=== PATIENT | female | born 1990 | race Caucasian/White ===

== ENCOUNTER 2018-11-10 20:40 | Emergency (ER) | payer BC, MEDICAID ==
[2018-11-10 20:55] VITALS: BP 125/74
--- NOTE | 2018-11-10 21:11 | EDM.PDOC ---
ED HPI GENERAL MEDICAL PROBLEM - General Chief Complaint: Respiratory Problem Stated Complaint: COUGH AND HARD TO BREATH RESPITORY Time Seen by Provider: 11/10/18 21:10 Source of Information: Reports: Patient History Limitations: Reports: No Limitations - History of Present Illness INITIAL COMMENTS - FREE TEXT/NARRATIVE: 20-year-old female presents the ED with harsh paroxysmal productive cough chest pain from coughing and breathing deeply with associated wheezing. She does have a history of asthma that's aggravated by exercise and when she gets sick. She is febrile. Appetite remains fair. She does have a headache. Mild generalized myalgia. She did not receive a flu shot this year. Onset: Sudden Onset Date: 11/08/18 (Illness started abruptly 2 days ago.) Duration: Day(s):, Getting Worse (2 days ago.) Location: Reports: Chest Quality: Reports: Ache, Other Severity: Moderate (Headache generalized myalgia) Improves with: Reports: None Worsens with: Reports: Other (Lying down and exposure to cool her make the cough worse.) Context: Denies: Activity, Exercise, Lifting, Sick Contact, Trauma Associated Symptoms: Reports: Chest Pain, Cough, cough w sputum, Fever/Chills, Headaches, Loss of Appetite, Malaise, Shortness of Breath, Other (Wheezing). 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: Reports: Other (see below) (None.) Chest Pain Score (Numeric/FACES): 8 - Related Data Allergies Allergy/AdvReac Type Severity Reaction Status Date / Time iodine Allergy Cannot Verified 11/10/18 20:53 Remember Home Meds: Home Meds Codeine/Promethazine [Phenergan with Codeine] 10 ml PO Q6H PRN #200 ml 11/10/18 [Rx] Doxycycline [Vibramycin] 100 mg PO BID #16 cap 11/10/18 [Rx] traMADol [Ultram] 50 mg PO Q4H PRN 11/10/18 [History] Past Medical History HEENT History: Reports: Impaired Vision Other HEENT History: wears glasses Respiratory History: Reports: Asthma 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 Decreased from the normal) HEENT: Reports: Other (Hoarse voice.) Respiratory: Reports: Shortness of Breath, Wheezing, Cough, Sputum (Severe paroxysmal intermittent cough.). Denies: Pleuritic Chest Pain, Hemoptysis ( No sputum production) Cardiovascular: Reports: Chest Pain, Dyspnea on Exertion (From coughing hard at times), Lightheadedness. Denies: Blood Pressure Problem, Claudication (From coughing primarily), Edema, Orthopnea Endocrine: Reports: Fatigue GI/Abdominal: Reports: Decreased Appetite (Mildly decreased appetite.) : Reports: No Symptoms Musculoskeletal: Reports: No Symptoms Skin: Reports: No Symptoms Neurological: Reports: No Symptoms Psychiatric: Reports: No Symptoms Hematologic/Lymphatic: Reports: No Symptoms ED EXAM, GENERAL - Physical Exam Exam: See Below Exam Limited By: No Limitations General Appearance: Alert, WD/WN, No Apparent Distress, Other (She does feel quite warm to palpation. Nurses a temperature 36.8 by skin assessment.) Eye Exam: Bilateral Eye: Normal Inspection Ears: Normal TMs Throat/Mouth: Normal Inspection, Normal Lips, Normal Teeth, Normal Oropharynx Head: Atraumatic, Normocephalic Neck: Normal Inspection, Non-Tender, Full Range of Motion. No: Lymphadenopathy (L), Lymphadenopathy (R) Respiratory/Chest: Chest Non-Tender, Respiratory Distress, Decreased Breath Sounds ( Mild expiratory wheezes from the lung bases.decreased air entry to both lower lung edwards. ), Wheezing (Mild tachypnea.). No: Lungs Clear, Normal Breath Sounds Cardiovascular: Normal Peripheral Pulses, Regular Rate, Rhythm, No Edema, No Gallop, No Murmur, No Rub GI/Abdominal: Normal Bowel Sounds, Soft, Non-Tender, No Organomegaly Extremities: Normal Inspection, Normal Range of Motion, Non-Tender, No Pedal Edema Neurological: Alert, Oriented, Normal Cognition Psychiatric: Normal Affect, Normal Mood Skin Exam: Warm, Dry, Intact, Normal Color, No Rash Course - Vital Signs Last Recorded V/S: Last Vital Signs Temp 36.8 C 11/10/18 20:54 Pulse 89 11/10/18 20:54 Resp 18 11/10/18 20:54 BP 125/74 11/10/18 20:54 Pulse Ox 100 11/10/18 21:15 - Orders/Labs/Meds Orders: Active Orders 24 hr Category Date Time Status RT Aerosol Therapy [RC] ASDIRECTED Care 11/10/18 21:15 Active Meds: Medications Discontinued Medications Generic Name Dose Route Start Last Admin Trade Name Shay PRN Reason Stop Dose Admin Albuterol/Ipratropium 3 ml 11/10/18 21:15 11/10/18 21:22 Duoneb 3.0-0.5 Mg/3 Ml NEB 11/10/18 21:16 3 ml ONETIME ONE Administration Doxycycline Hyclate 100 mg 11/10/18 21:50 11/10/18 22:02 Vibramycin PO 11/10/18 21:51 100 mg ONETIME ONE Administration Ibuprofen 600 mg 11/10/18 21:17 11/10/18 21:35 Motrin PO 11/10/18 21:18 600 mg ONETIME ONE Administration Promethazine HCl/Codeine 10 ml 11/10/18 21:51 11/10/18 22:02 Phenergan With Codeine PO 11/10/18 21:52 10 ml ONETIME ONE Administration - Radiology Interpretation Free Text/Narrative:: 20-year-old female presents to the ED with acute upper respiratory tract infection with acute onset of fever headache generalized myalgia and severe paroxysmal cough. Clinically she may have influenza. Plan influenza screen to be done. DuoNeb will be given to help open up her airway and suggest some of the cough. - Re-Assessments/Exams Free Text/Narrative Re-Assessment/Exam: 11/10/18 21:50 influenza screen is negative. He notices his bronchitis. She will be treated with doxycycline 100 mg twice daily for the next 8 days with the first dose provided through the ED as the drugstore be closing in a few minutes time. Also Phenergan with codeine cough syrup 10 mils every 6 to hours as needed for cough relief. Again first dose provided to the ED because the drug stores closing momentarily. Prescription written for the remainder the medications to be taken as an outpatient. Follow-up with personal care physician if not markedly improved in 3-4 days time. Patient states the duodenum did seem to help her breathe better and deeper without coughing. She is no longer wheezing. Departure - Departure Time of Disposition: 21:47 Disposition: Home, Self-Care 01 Condition: Fair Clinical Impression: Bronchitis - Discharge Information *PRESCRIPTION DRUG MONITORING PROGRAM REVIEWED*: Not Applicable *COPY OF PRESCRIPTION DRUG MONITORING REPORT IN PATIENT DOROTHEA: Not Applicable Prescriptions: Codeine/Promethazine [Phenergan with Codeine] 10 ml PO Q6H PRN #200 ml PRN Reason: Allergies Doxycycline [Vibramycin] 100 mg PO BID #16 cap Instructions: Acute Bronchitis, Adult, [id number] Referrals: PCP,Unknown [Primary Care Provider] - Forms: ED Department Discharge Additional Instructions: Evaluation the emergent tonight in regards to sudden onset of acute fever and paroxysmal cough and headache. Illness started 2 days ago. Examination reveals you do have a low-grade fever. Is and throat exam is normal. Influenza screen is negative. You' were treated with DuoNeb inhalational treatment in the ED and Motrin 600 mg for fever relief. Just treatment to be doxycycline 100 mg twice daily for the next 8 days to clear up infection and cough syrup Phenergan With Codeine 10 mils to be taken every 6-8 hours as necessary for cough relief. Of note he takes a good hour to work and should be taken with some food or fluid in your stomach. Continue Motrin 600 mg every 6 hours needed for fever relief. - My Orders Last 24 Hours: My Active Orders 11/10/18 21:15 RT Aerosol Therapy [RC] ASDIRECTED - Assessment/Plan Last 24 Hours: My Active Orders 11/10/18 21:15 RT Aerosol Therapy [RC] ASDIRECTED
[2018-11-10] MEDS ORDERED: Albuterol/Ipratropium 3.0-0.5 MG/3 ML Neb Soln NEB ONE (21:15)
[2018-11-10] MEDS ORDERED: Ibuprofen 600 MG Tab PO ONE (21:17)
[2018-11-10] MEDS ORDERED: Doxycycline 100 MG Cap PO ONE (21:50)
[2018-11-10] MEDS ORDERED: Codeine/Promethazine 10-6.25 MG/5 ML Syrup 5 ML UD Cup PO ONE (21:51)
== END 2018-11-10 22:04 | disposition home or self-care (01) ==
LOC: JD.ED 20:40
DX: J40 Bronchitis, not specified as acute or chronic (principal)
CPT/HCPCS: 87804; 94640; 99283; A9270; J7620-GY

== ENCOUNTER 2022-04-07 23:49 | Emergency (ER) | payer BC, MEDICAID ==
[2022-04-08 00:03] VITALS: BP 99/64; PULSE 82
== END 2022-04-08 00:44 | disposition home or self-care (01) ==
LOC: JD.ED 23:49
DX: M79.671 Pain in right foot (principal); J45.909 Unspecified asthma, uncomplicated; Z91.041 Radiographic dye allergy status; Z90.710 Acquired absence of both cervix and uterus
CPT/HCPCS: 99283

== ENCOUNTER 2022-05-17 06:40 | Day surgery (SDC) | payer BC ==
[~2022-05-17 06:40] MED LIST: Bupivacaine 0.25% 10 ML SDV ONE; Lactated Ringers 1,000 ML IV SCH; Lidocaine 1% 30 ML SDV ONE; Lidocaine 1%/Sod Bicarbonate in NS 8.4% 1 ML Syringe IDERM PRN; Midazolam 1 MG/ML 2 ML SDV ONE; Propofol 200 MG/20 ML SDV ONE; Sodium Chloride 0.9% 10 ML Syringe FLUSH PRN; Sodium Chloride 0.9% 10 ML Syringe FLUSH SCH; fentaNYL 100 MCG/2 ML SDV ONE
[2022-05-17] MEDS ORDERED: Lactated Ringers 1,000 ML ONE (07:43)
[2022-05-17 09:00] VITALS: BP 98/70; PULSE 60
== END 2022-05-17 09:40 | disposition home or self-care (01) ==
LOC: JD.SDS 06:40
PROVIDERS: ATTEND Orthopaedic Surgery
DX: G56.11 Other lesions of median nerve, right upper limb (principal); G56.01 Carpal tunnel syndrome, right upper limb; F41.9 Anxiety disorder, unspecified; J45.30 Mild persistent asthma, uncomplicated; F32.A Depression, unspecified; Z88.8 Allergy status to other drugs, medicaments and biological substances; Z79.899 Other long term (current) drug therapy; Z98.890 Other specified postprocedural states
CPT/HCPCS: 64721; J2250; J2704; J3010; J3490; J7120; 01810

== ENCOUNTER 2023-04-06 14:53 | Emergency (ER) | payer BC, OTHER ==
[2023-04-06 15:12] VITALS: BP 135/90; PULSE 80
[2023-04-06] MEDS ORDERED: Fluorescein 1 MG Ophth Strip EYERT ONE (15:27)
[2023-04-06] MEDS ORDERED: Proparacaine 0.5% Ophth Soln 15 ML Bottle EYERT ONE (15:29)
== END 2023-04-06 16:59 | disposition home or self-care (01) ==
LOC: JD.ED 14:53
DX: H57.89 Other specified disorders of eye and adnexa (principal); Z91.041 Radiographic dye allergy status; J45.909 Unspecified asthma, uncomplicated; Z79.51 Long term (current) use of inhaled steroids; Y77.11 Contact lens associated with adverse incidents
CPT/HCPCS: 99283; J3490

== ENCOUNTER 2023-04-26 23:13 | Emergency (ER) | payer OTHER ==
[2023-04-27] MEDS ORDERED: Ketorolac 30 MG/ML SDV IM ONE (00:46)
[2023-04-27 02:48] VITALS: BP 106/58; PULSE 75
== END 2023-04-27 01:03 | disposition home or self-care (01) ==
LOC: JD.ED 23:13
DX: M25.522 Pain in left elbow (principal); J45.909 Unspecified asthma, uncomplicated; Z88.8 Allergy status to other drugs, medicaments and biological substances; Z79.899 Other long term (current) drug therapy
CPT/HCPCS: 96372; 99283; J1885

== ENCOUNTER 2024-05-15 23:00 | Emergency (ER) | payer SELFPAY ==
[2024-05-15 23:17] VITALS: PULSE 88
[2024-05-16 01:31] VITALS: BP 125/97
== END 2024-05-16 01:28 | disposition home or self-care (01) ==
LOC: JD.ED 23:00
DX: M79.671 Pain in right foot (principal); Z90.710 Acquired absence of both cervix and uterus; Z79.899 Other long term (current) drug therapy; Z91.048 Other nonmedicinal substance allergy status
CPT/HCPCS: 73630-26-RT; 73630-RT; 99283

== ENCOUNTER 2025-01-27 23:22 | Emergency (ER) | payer SELFPAY ==
[2025-01-27 23:40] VITALS: BP 112/86; PULSE 107
[2025-01-28] MEDS: Ketorolac 30 MG/ML SDV IM ONE (00:39)
[2025-01-28] MEDS: Amoxicillin/Clavulanate K 875-125 MG Tab PO ONE (00:40)
== END 2025-01-28 00:45 | disposition home or self-care (01) ==
LOC: JD.ED 23:22
DX: H66.92 Otitis media, unspecified, left ear (principal); J02.9 Acute pharyngitis, unspecified; Z91.041 Radiographic dye allergy status; Z79.899 Other long term (current) drug therapy
CPT/HCPCS: 96372; 99282; A9270; J1885; 99283

== ENCOUNTER 2025-06-08 20:10 | Emergency (ER) | payer OTHER ==
[2025-06-08 20:31] VITALS: BP 125/67; PULSE 82
[2025-06-08] MEDS: Ketorolac 60 MG/2 ML SDV IM ONE (22:18)
== END 2025-06-08 22:20 | disposition home or self-care (01) ==
LOC: JD.ED 20:10
DX: R20.0 Anesthesia of skin (principal); J45.909 Unspecified asthma, uncomplicated; Z90.710 Acquired absence of both cervix and uterus; Z88.8 Allergy status to other drugs, medicaments and biological substances; Z79.51 Long term (current) use of inhaled steroids; Z79.899 Other long term (current) drug therapy
CPT/HCPCS: 70450; 72125; 73030; 96372; 99284; J1885; 99283

== ENCOUNTER 2025-08-16 19:56 | Emergency (ER) | payer OTHER ==
[2025-08-16 20:38] LABS: BASOPHILS ABSOLUTE AUTO 0.0 K/mm3 (0.0-0.2); BASOPHILS PERCENT AUTO 0.3 % (0.0-1.0); EOSINOPHILS ABSOLUTE AUTO 0.0 K/mm3 (0.0-0.4); EOSINOPHILS PERCENT AUTO 0.0 % (0.0-6.0); IMMATURE GRAN ABSOLUTE AUTO 0.02 K/mm3 (0.00-0.05); IMMATURE GRAN PERCENT AUTO 0.3 % (0.0-0.4); LYMPHOCYTES ABSOLUTE AUTO 1.4 K/mm3 (1.0-4.8); LYMPHOCYTES PERCENT AUTO 17.8 % (24.0-44.0); MEAN PLATELET VOLUME 9.2 fl (9.4-12.3); MONOCYTES ABSOLUTE AUTO 0.4 K/mm3 (0.0-0.8); MONOCYTES PERCENT AUTO 5.2 % (0.0-8.0); NEUTROPHILS ABSOLUTE AUTO 6.0 K/mm3 (1.8-7.7); NEUTROPHILS PERCENT AUTO 76.4 % (41.0-71.0); NRBC ABSOLUTE 0.00 (0.00-0.02); NRBC PERCENT 0.0 % (0.0-0.2); PLATELET COUNT,PLT 328 K/mm3 (150-400); RED BLOOD CELL COUNT 4.67 M/mm3 (4.10-5.30); WHITE BLOOD CELL COUNT,WBC 7.82 K/mm3 (3.9-11.3)
[2025-08-16] MEDS: cefTRIAXone 2 GM in Water For Injection, Sterile 20 ML IVPUSH ONE (20:56)
[2025-08-16] MEDS: methylPREDNISolone Sodium Succinate 125 MG/2 ML SDV IVPUSH ONE (20:56)
[2025-08-16] MEDS: LORazepam 2 MG/ML SDV IVPUSH STA (20:56)
[2025-08-16] MEDS: Acetaminophen/oxyCODONE 325-5 MG Tab PO ONE (20:57)
[2025-08-16 21:03] LABS: A/G RATIO 0.7 (1-2); ALANINE AMINOTRANSFERASE,ALT 33 U/L (14-59); ASPARTATE AMNIOTRANSFERASE,AST 32 U/L (15-37); BILIRUBIN TOTAL 1.3 mg/dL (0.2-1.0); BLOOD UREA NITROGEN,BUN 12 mg/dL (7-18); CARBON DIOXIDE,CO2 24 mEq/L (21-32); CHLORIDE,CL 100 mEq/L (98-107); CREATINE KINASE,CK 139 U/L (26-192); CREATININE 0.8 mg/dL (0.55-1.02); ESTIMATED GFR 98 mL/min (>60); GLUCOSE RANDOM 108 mg/dL (70-99); POTASSIUM,K 3.6 mEq/L (3.5-5.1); PROTEIN TOTAL,TP 8.2 g/dl (6.4-8.2); SODIUM,NA 135 mEq/L (136-145)
[2025-08-16 22:56] VITALS: BP 116/68; PULSE 100
== END 2025-08-16 22:43 | disposition home or self-care (01) ==
LOC: JD.ED 19:56
DX: J98.01 Acute bronchospasm (principal); J18.9 Pneumonia, unspecified organism; G89.29 Other chronic pain; Z91.041 Radiographic dye allergy status; Z79.899 Other long term (current) drug therapy; Z90.710 Acquired absence of both cervix and uterus
CPT/HCPCS: 36415; 71250; 80053; 82550; 83735; 85025; 87428; 94640; 96365; 96367; 96375; 99285; A4216; A9270; J0456; J0696; J2060; J2919; J3475; J7030; J7050; J7620

== ENCOUNTER 2025-08-21 06:24 | Emergency (ER) | payer OTHER ==
[2025-08-21 07:05] LABS: BASOPHILS ABSOLUTE AUTO 0.1 K/mm3 (0.0-0.2); BASOPHILS PERCENT AUTO 0.6 % (0.0-1.0); EOSINOPHILS ABSOLUTE AUTO 0.2 K/mm3 (0.0-0.4); EOSINOPHILS PERCENT AUTO 1.3 % (0.0-6.0); IMMATURE GRAN ABSOLUTE AUTO 0.31 K/mm3 (0.00-0.05); IMMATURE GRAN PERCENT AUTO 2.2 % (0.0-0.4); LYMPHOCYTES ABSOLUTE AUTO 4.1 K/mm3 (1.0-4.8); LYMPHOCYTES PERCENT AUTO 28.9 % (24.0-44.0); MEAN PLATELET VOLUME 8.8 fl (9.4-12.3); MONOCYTES ABSOLUTE AUTO 0.6 K/mm3 (0.0-0.8); MONOCYTES PERCENT AUTO 4.1 % (0.0-8.0); NEUTROPHILS ABSOLUTE AUTO 9.0 K/mm3 (1.8-7.7); NEUTROPHILS PERCENT AUTO 62.9 % (41.0-71.0); NRBC ABSOLUTE 0.00 (0.00-0.02); NRBC PERCENT 0.0 % (0.0-0.2); RED BLOOD CELL COUNT 4.50 M/mm3 (4.10-5.30); WHITE BLOOD CELL COUNT,WBC 14.34 K/mm3 (3.9-11.3)
[2025-08-21] MEDS: Acetaminophen/oxyCODONE 325-5 MG Tab PO STA (07:06)
[2025-08-21] MEDS: Ondansetron 4 MG/2 ML SDV IV STA (07:07)
[2025-08-21] MEDS: methylPREDNISolone Sodium Succinate 125 MG/2 ML SDV IVPUSH ONE (07:08)
[2025-08-21 07:27] LABS: A/G RATIO 1.1 (1-2); ALANINE AMINOTRANSFERASE,ALT 40.0 U/L (14-59); ASPARTATE AMNIOTRANSFERASE,AST 23.0 U/L (15-37); BILIRUBIN TOTAL 0.8 mg/dL (0.2-1.0); BLOOD UREA NITROGEN,BUN 6.0 mg/dL (7-18); CARBON DIOXIDE,CO2 24.0 mEq/L (21-32); CHLORIDE,CL 104.0 mEq/L (98-107); CREATINE KINASE,CK 92.0 U/L (26-192); CREATININE 0.8 mg/dL (0.55-1.02); EST CRCL DRUG DOSING (CG) 70.5 mL/min; ESTIMATED GFR 98.0 mL/min (>60); GLUCOSE RANDOM 96.0 mg/dL (70-99); POTASSIUM,K 3.5 mEq/L (3.5-5.1); PROTEIN TOTAL,TP 7.9 g/dl (6.4-8.2); SODIUM,NA 142.0 mEq/L (136-145)
[2025-08-21 07:48] LABS: PLATELET COUNT,PLT 484 K/mm3 (150-400)
[2025-08-21] MEDS: Metoprolol Tartrate 5 MG/5 ML SDV IVPUSH ONE (08:44)
[2025-08-21 15:23] VITALS: BP 108/59; PULSE 115
== END 2025-08-21 11:15 | disposition home or self-care (01) ==
LOC: JD.ED 06:24
DX: J45.41 Moderate persistent asthma with (acute) exacerbation (principal); Z79.899 Other long term (current) drug therapy; Z91.041 Radiographic dye allergy status; Z90.710 Acquired absence of both cervix and uterus
CPT/HCPCS: 36415; 71045; 80053; 82550; 83735; 85025; 85379; 94640; 96361; 96365; 96375; 99285; A9270; J0616; J2405; J2919; J3475; J7030; J7620